=== PATIENT | male | born 1995 | race Hispanic/Latino ===

== ENCOUNTER 2018-06-02 21:04 | Emergency (ER) | payer SELFPAY ==
[2018-06-02] MEDS ORDERED: Azithromycin 250 MG TAB ONE (21:46)
[2018-06-02] MEDS ORDERED: predniSONE 20 MG TAB ONE (21:46)
== END 2018-06-02 21:58 | disposition home or self-care (01) ==
LOC: MADERS 21:04
DX: J32.9 Chronic sinusitis, unspecified (principal); I10 Essential (primary) hypertension
CPT/HCPCS: 99283; J7506

== ENCOUNTER 2021-07-27 21:36 | Emergency (ER) | payer SELFPAY ==
[2021-07-27] MEDS ORDERED: Azithromycin 250 MG TAB ONE (22:24)
[2021-07-28 20:08] LABS: SARS-CoV-2 PCR by NAA DETECTED (NotDetected)
== END 2021-07-27 22:35 | disposition home or self-care (01) ==
LOC: MADERS 21:36
DX: U07.1 COVID-19 (principal); J20.8 Acute bronchitis due to other specified organisms
CPT/HCPCS: 99283; U0003; U0005